=== PATIENT | male | born 1940 | race Caucasian/White ===

== ENCOUNTER 2020-10-06 06:29 | Inpatient (IN) ==
[2020-10-06 07:11] LABS: ABS Basophils 0.1 10^3/ul (0-0.2); ABS Eosinophils 0.2 10^3/ul (0-0.6); ABS Monocytes 0.5 10^3/ul (0-0.8); ABS Neutrophils 6.2 10^3/ul (1.5-7.7); Eosinophil % 2.1 %; Hematocrit 46 % (42-52); Hemoglobin 15.8 g/dL (14.0-18.0); Lymphocyte % 12.2 %; Mean Corpuscular HGB Conc 35 g/dL (31-36); Mean Corpuscular Hemoglobin 35 pg (27-31); Mean Corpuscular Volume 100 fL (80-94); Platelet Count 153 10^3/uL (150-450); Red Blood Count 4.58 10^6 /uL (4.18-5.48); Red Cell Distribution Width 14 % (10-15); White Blood Count 7.9 10^3/uL (3.5-10.8)
[2020-10-06 07:25] LABS: ALT 32 U/L (7-52); Albumin 3.9 g/dL (3.2-5.2); Albumin/Globulin Ratio 1.3 (1-3); Alkaline Phosphatase 80 U/L (35-149); Blood Urea Nitrogen 12 mg/dL (6-24); CO2 Carbon Dioxide 24 mmol/L (22-32); Calcium 9.6 mg/dL (8.6-10.3); Chloride 105 mmol/L (101-111); EGFR African American 81.8 (>60); EGFR Non-African American 67.6 (>60); Globulin 3.1 g/dL (2-4); Glucose 147 mg/dL (70-100); Sodium 138 mmol/L (135-145)
[2020-10-06 07:48] LABS: Anion Gap 9 mmol/L (2-11); Troponin I 0.73 ng/mL (<0.03)
[2020-10-06] MEDS ORDERED: Heparin DRIP 25,000 UNITS BAG 25,000 UNITS/500 ML BAG IV SCH ×2 (08:15→17:00)
[2020-10-06] MEDS ORDERED: Heparin 5000 UNITS/ML 1 mL VIAL IV SCH ×2 (09:00→12:00)
[2020-10-06] MEDS ORDERED: Fluticasone NASAL SPRAY 50MCG 16 gm SPRAY BTL INTRANASAL PRN (09:44)
[2020-10-06 10:05] LABS: Activated Partial Thrombo Time 36.5 seconds (26.0-38.0)
[2020-10-06 10:08] LABS: AST Redraw 92 U/L (13-39)
[2020-10-06 10:11] LABS: INR 1.82 (0.86-1.15)
[2020-10-06 10:14] LABS: Troponin I 7.14 ng/mL (<0.03)
[2020-10-06] MEDS ORDERED: Perflutren Lipid Microsphere 3 ML VIAL ONE (12:27)
[2020-10-06 13:48] LABS: Troponin I 22.37 ng/mL (<0.03)
[2020-10-06 17:56] LABS: Troponin I 36.31 ng/mL (<0.03)
[2020-10-06] MEDS ORDERED: Furosemide 40 mg/4 ml IV VIAL IV ONE (18:50)
[2020-10-06] MEDS ORDERED: Mometasone/Formoter 200/5 MDI INH PRN (21:00)
[2020-10-07 00:21] LABS: Calcium 9.9 mg/dL (8.6-10.3); EGFR African American 81.8 (>60); EGFR Non-African American 67.6 (>60); Potassium 3.7 mmol/L (3.5-5.0)
[2020-10-07] MEDS ORDERED: NS 0.9% 1000 ml BAG 1,000 ML IV SCH (07:00)
[2020-10-07 07:03] LABS: ABS Basophils 0.1 10^3/ul (0-0.2); ABS Eosinophils 0.3 10^3/ul (0-0.6); ABS Lymphocytes 1.6 10^3/ul (1.0-4.8); ABS Monocytes 0.7 10^3/ul (0-0.8); ABS Neutrophils 4.8 10^3/ul (1.5-7.7); Eosinophil % 3.9 %; Hematocrit 46 % (42-52); Hemoglobin 15.8 g/dL (14.0-18.0); Lymphocyte % 21.4 %; Mean Corpuscular HGB Conc 34 g/dL (31-36); Mean Corpuscular Hemoglobin 34 pg (27-31); Mean Corpuscular Volume 100 fL (80-94); Mean Platelet Volume 9.2 fL (7.4-10.4); Nucleated Red Blood Cells % 0.1; Platelet Count 137 10^3/uL (150-450); Red Blood Count 4.58 10^6 /uL (4.18-5.48); Red Cell Distribution Width 14 % (10-15); White Blood Count 7.6 10^3/uL (3.5-10.8)
[2020-10-07 07:14] LABS: Anion Gap 8 mmol/L (2-11); Blood Urea Nitrogen 11 mg/dL (6-24); CO2 Carbon Dioxide 26 mmol/L (22-32); Calcium 9.8 mg/dL (8.6-10.3); Chloride 104 mmol/L (101-111); Cholesterol 116 mg/dL; EGFR Non-African American 81.8 (>60); Glucose 127 mg/dL (70-100); HDL Cholesterol 38.1 mg/dL; LDL Cholesterol 55 mg/dL; Potassium 3.8 mmol/L (3.5-5.0); Sodium 138 mmol/L (135-145); Triglycerides 113 mg/dL
[2020-10-07 07:15] LABS: INR 1.48 (0.86-1.15)
[2020-10-07 07:25] LABS: Troponin I 21.41 ng/mL (<0.03)
[2020-10-07] MEDS ORDERED: Aspirin EC 81 mg TAB.EC (enteric coated) PO SCH (09:00)
[2020-10-07 09:02] LABS: Activated Partial Thrombo Time 114.1 seconds (26.0-38.0)
[2020-10-07] MEDS ORDERED: Midazolam 5 mg/5 ml VIAL 1 mg/ml 5 ml VIAL (5 mg) ONE (11:40)
[2020-10-07] MEDS ORDERED: fentaNYL 100 mcg/2 ml 50 MCG/ML VIAL ONE (11:40)
[2020-10-07] MEDS ORDERED: VERAPAMIL 2.5 MG/ML 2 ML VIAL ** 5 mg/2 ml ONE (11:41)
[2020-10-07] MEDS ORDERED: nitroGLYCERIN DRIP 25,000 MCG/250 ML BTL ONE (11:41)
[2020-10-07] MEDS ORDERED: Heparin 1,000 UNIT/ML 10 ml (10,000 UNITS) CATHLAB/DIALYSIS ONE ×2 (11:41→12:45)
[2020-10-07] MEDS ORDERED: Heparin 2 UNITS/ML 1000 mls 2,000 ML IV ONE (11:41)
[2020-10-07] MEDS ORDERED: Lidocaine 1% VIAL 10 MG/ML VIAL ONE (11:41)
[2020-10-07] MEDS ORDERED: Iohexol 350 (CONTRAST) 200 ML MDV IV ONE ×2 (11:41→12:43)
[2020-10-07] MEDS ORDERED: niCARdipine 0.1MG/ML IVPREMIX 20 MG/200 ML BAG IV ONE (11:42)
[2020-10-07] MEDS ORDERED: Ondansetron 4 mg VIAL 2 MG/ML 2 ml VIAL ONE ×2 (12:51→13:25)
[2020-10-07] MEDS ORDERED: Ondansetron 4 mg VIAL 2 MG/ML 2 ml VIAL IV PRN (13:24)
[2020-10-07] MEDS ORDERED: Furosemide 40 mg/4 ml IV VIAL ONE (13:58)
[2020-10-07 15:55] LABS: CKMB ng/mL 26.2 ng/mL (0.6-6.3)
[2020-10-07 16:04] LABS: Creatine Kinase 322 U/L (10-223)
[2020-10-07] MEDS ORDERED: Acetaminophen IV 1 GM/100ML 100 ML IV ONE (16:54)
[2020-10-07 17:14] LABS: Anion Gap 10 mmol/L (2-11); Blood Urea Nitrogen 10 mg/dL (6-24); CO2 Carbon Dioxide 24 mmol/L (22-32); Calcium 10.2 mg/dL (8.6-10.3); Chloride 102 mmol/L (101-111); EGFR African American 86.6 (>60); EGFR Non-African American 71.5 (>60); Glucose 141 mg/dL (70-100); Potassium 4.1 mmol/L (3.5-5.0); Sodium 136 mmol/L (135-145)
[2020-10-07] MEDS: Isosorbide Mononit ER 30mg TAB PO SCH (18:49)
[2020-10-07 20:12] LABS: Creatine Kinase 313 U/L (10-223)
[2020-10-07 20:17] LABS: CKMB ng/mL 33.3 ng/mL (0.6-6.3)
[2020-10-07 20:20] LABS: Troponin I 13.54 ng/mL (<0.03)
[2020-10-08 01:54] LABS: Creatine Kinase 359 U/L (10-223)
[2020-10-08 02:00] LABS: CKMB ng/mL 48.6 ng/mL (0.6-6.3)
[2020-10-08 02:14] LABS: Troponin I 14.84 ng/mL (<0.03)
[2020-10-08 06:38] LABS: ABS Basophils 0.1 10^3/ul (0-0.2); ABS Eosinophils 0.2 10^3/ul (0-0.6); ABS Lymphocytes 1.1 10^3/ul (1.0-4.8); ABS Monocytes 0.8 10^3/ul (0-0.8); ABS Neutrophils 5.6 10^3/ul (1.5-7.7); Hematocrit 45 % (42-52); Hemoglobin 15.6 g/dL (14.0-18.0); Lymphocyte % 14.5 %; Mean Corpuscular HGB Conc 35 g/dL (31-36); Mean Corpuscular Hemoglobin 35 pg (27-31); Mean Corpuscular Volume 100 fL (80-94); Mean Platelet Volume 8.6 fL (7.4-10.4); Platelet Count 137 10^3/uL (150-450); Red Blood Count 4.49 10^6 /uL (4.18-5.48); Red Cell Distribution Width 14 % (10-15); White Blood Count 7.7 10^3/uL (3.5-10.8)
[2020-10-08 06:54] LABS: Albumin 3.9 g/dL (3.2-5.2); Albumin/Globulin Ratio 1.3 (1-3); Calcium 9.8 mg/dL (8.6-10.3); EGFR African American 86.6 (>60); EGFR Non-African American 71.5 (>60); Potassium 4.1 mmol/L (3.5-5.0); Total Bilirubin 2.6 mg/dL (0.2-1.0); Total Protein 6.9 g/dL (6.4-8.9)
[2020-10-08] MEDS: Isosorbide Mononit ER 30mg TAB PO SCH (09:16)
[2020-10-08] MEDS: Aspirin EC 81 mg TAB.EC (enteric coated) PO SCH (09:16)
[2020-10-08 10:21] LABS: Phosphorus 2.9 mg/dL (2.5-5.0)
[2020-10-08] MEDS ORDERED: Furosemide 20 mg/2 ml IV VIAL IV ONE (11:41)
[2020-10-08] MEDS: Nystatin TOP POWDER 15 GM BTL TOPICAL SCH (22:35)
[2020-10-09] MEDS: Isosorbide Mononit ER 30mg TAB PO SCH (08:29)
[2020-10-09] MEDS: Aspirin EC 81 mg TAB.EC (enteric coated) PO SCH (08:29)
[2020-10-09 09:10] LABS: ABS Basophils 0.1 10^3/ul (0-0.2); ABS Eosinophils 0.3 10^3/ul (0-0.6); ABS Lymphocytes 1.2 10^3/ul (1.0-4.8); ABS Monocytes 0.9 10^3/ul (0-0.8); ABS Neutrophils 4.7 10^3/ul (1.5-7.7); Eosinophil % 3.6 %; Hematocrit 43 % (42-52); Hemoglobin 14.9 g/dL (14.0-18.0); Lymphocyte % 16.2 %; Mean Corpuscular HGB Conc 35 g/dL (31-36); Mean Corpuscular Hemoglobin 35 pg (27-31); Mean Corpuscular Volume 100 fL (80-94); Platelet Count 127 10^3/uL (150-450); Red Blood Count 4.31 10^6 /uL (4.18-5.48); Red Cell Distribution Width 14 % (10-15); White Blood Count 7.1 10^3/uL (3.5-10.8)
[2020-10-09 09:28] LABS: Albumin 3.7 g/dL (3.2-5.2); Albumin/Globulin Ratio 1.2 (1-3); Calcium 10.2 mg/dL (8.6-10.3); EGFR Non-African American 81.8 (>60); Magnesium 1.9 mg/dL (1.9-2.7); Phosphorus 2.6 mg/dL (2.5-5.0); Potassium 4.1 mmol/L (3.5-5.0); Total Bilirubin 2.4 mg/dL (0.2-1.0); Total Protein 6.7 g/dL (6.4-8.9)
[2020-10-09] MEDS: Nystatin TOP POWDER 15 GM BTL TOPICAL SCH (09:28)
[2020-10-09] MEDS ORDERED: Furosemide 20 mg/2 ml IV VIAL IV SLOW PU ONE (10:00)
[2020-10-09 11:49] VITALS: BP 122/59
== END 2020-10-09 13:58 | disposition home or self-care (01) | DRG 247 ==
LOC: MEDTELE 06:29 → ED 06:29 → MEDTELE 14:47 → OBSVTOIN 15:06 → ICU 10-07 13:24 → MEDTELE 10-08 14:43
PROVIDERS: ADMIT Internal Medicine; ATTEND Internal Medicine